=== PATIENT | female | born 1960 | race Two or more races ===

== ENCOUNTER 2016-09-18 00:22 | Inpatient (IN) | payer SELFPAY ==
--- NOTE | 2016-09-18 00:57 | EDPHY ---
H & P Smoking Status: Never smoked Time Seen by Provider: 09/18/16 00:54 HPI/ROS: CHIEF COMPLAINT: Depressed suicidal ideation HISTORY OF PRESENT ILLNESS: This is a 56-year-old female presenting to the emergency department seeking help for her depression. Patient states October will be the anniversary of her 's 2 years ago she was to him over 33 years, she also states would increased her depression her cat 2 weeks ago. States she has had a lot of overwhelming stress environmental stressors having to deal with the household finances, putting her house up for sale. Patient states she did call some friends to see if she could talk with them" nobody called me back, then I called the crisis line in the told me to come here" patient states she has been seeing a therapist which she sought 1 month ago they increased her Effexor, patient states she did not increase her Effexor at that time but when her cat 2 weeks ago that is when she increased her Effexor" and just not working". " I just started walking around tonight walking around [place] and then I started having thoughts of killing myself because I have so much stress right now". Patient denies any plan. REVIEW OF SYSTEMS: Constitutional: No fever, no chills. Eyes: No discharge. ENT: No sore throat. Cardiovascular: No chest pain, no palpitations. Respiratory: No cough, no shortness of breath. Gastrointestinal: No abdominal pain, no vomiting. Genitourinary: No hematuria. Musculoskeletal: No back pain. Skin: No rashes. Neurological: No headache. Crying (Sharmaine Chambers) Physical Exam: General Appearance: Alert, anxious and crying Eyes: Pupils equal and round no pallor or injection. ENT, Mouth: Mucous membranes moist. Respiratory: There are no retractions, lungs are clear to auscultation. Cardiovascular: Regular rate and rhythm. Gastrointestinal: Abdomen is soft and nontender, no masses, bowel sounds normal. Neurological: No focal deficits. Answering questions appropriately Skin: Warm and dry, no rashes. Musculoskeletal: Neck is supple nontender. Extremities: symmetrical, full range of motion. Psychiatric: Patient is oriented X 3, anxious and crying (Sharmaine Chambers) Constitutional: Initial Vital Signs Temperature (C) 36.9 C 09/18/16 00:23 Heart Rate 69 09/18/16 00:23 Respiratory Rate 20 09/18/16 00:23 Blood Pressure 125/81 H 09/18/16 00:23 O2 Sat (%) 97 09/18/16 00:23 O2 Delivery Mode Room Air Allergies/Adverse Reactions: No Known Allergies Allergy (Verified 09/18/16 09:21) Home Medications: Medication Instructions Recorded Ascorbate Calcium [Ludy-C] 500 mg PO DAILY 09/18/16 Multivitamins [Multivitamin (*)] 1 each PO DAILY 09/18/16 S-Adenosylmethionine Sul Tosyl 400 mg PO DAILY 09/18/16 [Chandana-E] Thyroid 65 mg PO DAILY 09/18/16 Venlafaxine Xr [Effexor Xr 37.5MG 37.5 mg PO DAILY 09/18/16 (*)] Venlafaxine Xr [Effexor Xr 75MG 75 mg PO DAILY 09/18/16 (*)] Medical Decision Making ED Course/Re-evaluation: 0604AM: No acute events overnight. Patient pending placement has been evaluated. On M1 hold. Patient signed over to Dr. Gaston at 7am shift Change. (Rohan Márquez) I assumed care of this patient from Dr. Márquez at 7:00 a.m.. Patient has been stable. She has been evaluated by mental health and has been accepted for admission at [address] [place] [address]. (Gildardo Ventura) Discussed ED plan of care" CBC, BMP, UA, urine drug tox, psych evaluation 0130: Patient medically cleared for psych. Uzma with [facility] a patient bedside 0210: Discussed patient with crusting with [facility], patient at this time cannot contract for safety has stated that she may not have pills but she could walk out in front of a car. Patient placed on an M1 hold 0215: Report handed off to Dr. Márquez. Patient stable not in any distress ( Sharmaine Chambers) Differential Diagnosis: Other differential diagnosis considered but not limited to paranoia, anxiety, and suicide attempt (Sharmaine Chambers) - Data Points Laboratory Results: Laboratory Results 09/18/16 01:00 09/18/16 01:00 09/18/16 01:00 TSH 1.190 uIU/mL uIU/mL (0.465-4.680) Departure - Departure Disposition: [facility] IP Clinical Impression: Suicidal ideation Condition: Fair
[2016-09-18 01:12] LABS: % IMMATURE GRANULYOCYTES 0.2 % (0.0-1.1); ABSOLUTE IMMATURE GRANULOCYTES 0.02 10^3/uL (0.00-0.10); ADD DIFF? NO; ADD MORPH? NO; ADD SCAN? NO; ATYPICAL LYMPHOCYTE FLAG 20 (0-99); FRAGMENT RBC FLAG 0 (0-99); HEMATOCRIT 42.7 % (38.0-47.0); HEMOGLOBIN 14.5 g/dL (12.6-16.3); LEFT SHIFT FLG 0 (0-99); LIPEMIA HEMOLYSIS FLAG 90 (0-99); MEAN CELL HEMOGLOBIN 30.5 pg (27.9-34.1); MEAN CELL VOLUME 89.7 fL (81.5-99.8); MEAN PLATELET VOLUME 9.4 fL (8.7-11.7); PLATELET CLUMPS FLAG 0 (0-99); PLATELET COUNT 269 10^3/uL (150-400); RED BLOOD CELL COUNT 4.76 10^6/uL (4.18-5.33); RED CELL DISTRIBUTION WIDTH 11.9 % (11.5-15.2)
[2016-09-18 01:25] LABS: ANION GAP 12 mEq/L (8-16); CARBON DIOXIDE 19 mEq/l (22-31); CHLORIDE 111 mEq/L (97-110); CREATININE 0.7 mg/dL (0.6-1.0); ETHANOL SERUM < 10 mg/dL (0-10); GLOMERULAR FILTRATION RATE > 60; GLUCOSE 118 mg/dL (70-100); POTASSIUM 3.9 mEq/L (3.5-5.2); SODIUM 142 mEq/L (134-144)
[2016-09-18] MEDS ORDERED: ACETAMINOPHEN 325 MG TAB PO PRN (13:45)
[2016-09-18] MEDS ORDERED: LORazepam 0.5 MG TAB PO PRN (13:46)
[2016-09-18] MEDS ORDERED: MAG HYDROX/AL HYDROX/SIMETH 30 ML UDCUP PO PRN (13:47)
[2016-09-18] MEDS ORDERED: MAGNESIUM HYDROXIDE 30 ML UDCUP PO PRN (13:48)
[2016-09-18] MEDS: THYROID 60 MG TAB PO SCH (14:00)
--- NOTE | 2016-09-18 16:01 | BCON ---
[f rep st] BEHAVIORAL HEALTH CONSULTATION INTERNAL MEDICINE CONSULTATION DATE OF CONSULTATION: 09/18/2016 REFERRING PHYSICIAN: Vianney Marinelli MD REASON FOR REFERRAL: Medical clearance for inpatient behavioral health stay. HISTORY OF PRESENT ILLNESS: This patient came to the emergency department, being referred by the mental health crisis line. She has had increasing depression over a period of time with multiple stressors. She was evaluated by the mental health team and admitted for further psychiatric care for depression. She reports that she had an episode of chest pressure this morning in the emergency department adjacent to her left lower sternum. She did not have any associated shortness of breath, sweats, or nausea. It lasted for up to 2 hours and then resolved on its own. She also reports that she has had episodes of shaking and possibly neuropathic discomfort in her arms and legs. Sometimes this interferes with her ability to sleep and she reports that one time she took a clonazepam tablet which helped her relax, though she does not think that these neurologic symptoms are due to anxiety. She reports that her symptoms of fibromyalgia as well as hypothyroidism and possibly this neurologic issue that she raises are due to treatment with Lupron when she was 32 years old for uterine fibroids. Otherwise, she is without any acute complaints. PAST MEDICAL HISTORY: 1. Depression. 2. Hypothyroidism. 3. Uterine fibroids. PAST SURGICAL HISTORY: She has had surgical excision of fibroids. MEDICATIONS: Prior to admission, she was takin. Norris Thyroid 65 mg p.o. daily. 2. Venlafaxine 112.5 mg p.o. daily. 3. S-adenosylmethionine 400 mg p.o. daily. 4. Multivitamin 1 p.o. daily. 5. Calcium ascorbate 500 mg p.o. daily. SOCIAL HISTORY: Her approximately 2 years ago. Her cat 2 weeks ago. She lives in [place]. 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 She is a nonsmoker and she has only occasional alcohol. She is originally from [place]. FAMILY HISTORY: She reports a family history of early heart disease and by myocardial infarction in her grandfather while he was in his 50s. She also relates a family history of depression. REVIEW OF SYSTEMS: Other than as in HPI, she reports fibromyalgia pain, but she does not take medications for it. She denies dyspnea or cough. She denies fevers or chills. She denies weight change. She denies nausea, vomiting, constipation, or diarrhea. She denies joint pain or joint swelling. She denies dysuria or urinary frequency. She is postmenopausal for about 4 years and other than that, a 10-point review of systems was negative. PHYSICAL EXAM: VITAL SIGNS: Blood pressure is 95/54, heart rate is 88, respiratory rate is 16, oxygen saturation is 98% on room air. Her temperature is 36.8 degrees centigrade. Her weight is 63 kg for a body mass index of 22.4. GENERAL: This is a well-nourished, well-developed woman who appears her chronologic age. Cooperative and in no acute distress. HEENT: Extraocular movements are intact. Pupils are equal, round, reactive to light. Mucous membranes are moist. Dentition is in good condition. She has an uncrowded airway, Mallampati class 1. NECK: Supple with no thyromegaly. HEART: There is a regular rate and rhythm with no murmurs, rubs, or gallops. LUNGS: Clear to auscultation bilaterally. ABDOMEN: Soft, nontender, nondistended with normoactive bowel sounds. EXTREMITIES: There is no cyanosis, clubbing, or edema. NEUROLOGIC: She is alert and oriented x3. Cranial nerves 2-12 are grossly intact. There is no focal weakness and sensation is intact to light touch. LABORATORY STUDIES: Drawn in the emergency department: CBC was within normal limits. Serum chemistry revealed a slightly high chloride at 111, a slightly low carbon dioxide at 19; these are likely of no clinical significance. Glucose was slightly high at 118, but this was likely not fasting. TSH was ordered, but the result is pending. Toxicology screen in the serum was negative for ethyl alcohol, and the urine was negative for any substances of abuse. ASSESSMENT/RECOMMENDATIONS: 1. Mental health issues pending further evaluation and management by Psychiatry and the mental health team. 2. Hypothyroidism. Await TSH ordered in the emergency department, and continue her thyroid supplementation. 3. Chest pain. I will order an EKG to evaluate. 4. Fibromyalgia. 5. Nonspecific peripheral neuropathic symptoms. Unclear whether these as well as fibromyalgia symptoms may be caused by or exacerbated by depression and anxiety. Advised her to observe for improvement when her depression is more optimally treated. I see no medical contraindications to this patient's continued stay on the inpatient behavioral health unit or to any psychiatric medications or procedures. Thank you very much for including me in the care of this patient and please do not hesitate to contact me or the hospitalist service should there be need for further medical evaluation. /[id number]/MODL MTDD
[2016-09-18] MEDS: VENLAFAXINE XR 150 MG CAP PO SCH (17:48)
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
[2016-09-18] MEDS: MELATONIN 3 MG TAB PO PRN (23:54)
[2016-09-19] MEDS: VENLAFAXINE XR 150 MG CAP PO SCH (08:54)
[2016-09-19] MEDS: THYROID 60 MG TAB PO SCH (10:34)
[2016-09-19] MEDS ORDERED: hydrOXYzine HCL 25 MG TAB PO PRN (15:00)
[2016-09-19] MEDS: ASPIRIN EC 81 MG TAB PO SCH (20:32)
[2016-09-19] MEDS: MELATONIN 3 MG TAB PO PRN (22:02)
--- NOTE | 2016-09-19 22:39 | SOAPPROG ---
SOAP Progress Note Assessment/Plan: Assessment: 56yo w/hx MDD went to [facility] to feel safe in waiting area late night since not able to stay at a friends' house, and felt too acutely emotionally distressed, crying and calling crisis # for help when asked to come into ER for eval. Expressed mult stressors acute on chronic and recent loss of cat, and still grieving loss of H 2yr ago. no plan/intent for SI but did not feel safe to leave , and admitted on M1 09/19/16 18:18 slept 6.5hrs. states noise from A/C interfered w/sleep. staff provided earplugs denied any med s/e to incr Effexor, not feeling anxious today. will get EKG today (see hospitalist note) spent time discussing outpt MH f/u options, also living situation options. can return to her home if necessary, just feels alone there and remembers losses. discusses other options to relieve financial stressor with home mortgage. considering a roommate, also plans to [place] and hope for a sale soon. plans to start making phone calls from unit to customs house broker, friends etc. also interested in finding grief support group to connect with, since such groups have helped in past. considering [facility] for f/u since has been there before once, unless plans to stay locally then will go to [facility]. working with cc on unit about this. talked about focusing on or taking time daily for self-care, ensuring proper nutrition, resuming exercise, sleeping well MSE: dressed in hosp gowns, groomed/brushed long hair, nml PMA, good ec nml speech rate/vol, mood "I feel fine" and wondering about leaving soon to continue taking care of things. affect euthymic, not labile or tearful. denied any ah/vh, no evid of thought d/o, no hi, consistently denied any SI, active/passive or even fleeting thoughts. has been consistently future-oriented throughout hospital stay. i/j seem intact, cogntion intact. PLAN: cont meds noted in hospitalist admit note that pt has been taking SAMe 400mg. will discuss with pt tomorrow, and pharmacist, since has 5HT effects. add Vistaril 25mg tid prn anxiety to try if needed. cont melatonin 3mg hs prn anticipate d/c tomorrow or by end of - w/ f/u in place Objective: Vital Signs Temp Pulse Resp BP Pulse Ox 36.8 C 74 12 121/73 H 96 09/19/16 06:00 09/19/16 06:00 09/19/16 06:00 09/19/16 06:00 09/19/16 06:00 - Time Spent With Patient Time Spent With Patient: 35min - Pending Discharge Pending Discharge Within 24 Hours: No Pending Discharge Within 48 Hours: Yes Pending Discharge Date: 09/21/16 Pending Discharge Time: 11:00 ICD10 Worksheet Patient Problems: Problems Problem Status Onset Suicidal ideation Acute
[2016-09-20 06:21] VITALS: BP 129/79; PULSE 64; RESP 14; TEMP 97.7; O2SAT 97
[2016-09-20] MEDS: THYROID 60 MG TAB PO SCH (11:14)
[2016-09-20] MEDS: VENLAFAXINE XR 150 MG CAP PO SCH (11:14)
[2016-09-20] MEDS: ASPIRIN EC 81 MG TAB PO SCH (11:15)
--- NOTE | 2016-09-20 14:57 | SOAPPROG ---
SOAP Progress Note Assessment/Plan: Assessment: 56yo w/hx MDD went to [facility] to feel safe in waiting area late night since not able to stay at a friends' house, and felt too acutely emotionally distressed, crying and calling crisis # for help when asked to come into ER for eval. Expressed mult stressors acute on chronic and recent loss of cat, and still grieving loss of H 2yr ago. no plan/intent for SI but did not feel safe to leave , and admitted on M1 09/19/16 18:18 slept 6.5hrs. states noise from A/C interfered w/sleep. staff provided earplugs denied any med s/e to incr Effexor, not feeling anxious today. will get EKG today (see hospitalist note) spent time discussing outpt MH f/u options, also living situation options. can return to her home if necessary, just feels alone there and remembers losses. discusses other options to relieve financial stressor with home mortgage. considering a roommate, also plans to [place] and hope for a sale soon. plans to start making phone calls from unit to stock broker supervisor, friends etc. also interested in finding grief support group to connect with, since such groups have helped in past. considering [facility] for f/u since has been there before once, unless plans to stay locally then will go to [facility]. working with cc on unit about this. talked about focusing on or taking time daily for self-care, ensuring proper nutrition, resuming exercise, sleeping well MSE: dressed in hosp gowns, groomed/brushed long hair, nml PMA, good ec nml speech rate/vol, mood "I feel fine" and wondering about leaving soon to continue taking care of things. affect euthymic, not labile or tearful. denied any ah/vh, no evid of thought d/o, no hi, consistently denied any SI, active/passive or even fleeting thoughts. has been consistently future-oriented throughout hospital stay. i/j seem intact, cogntion intact. PLAN: cont meds noted in hospitalist admit note that pt has been taking SAMe 400mg. will discuss with pt tomorrow, and pharmacist, since has 5HT effects. add Vistaril 25mg tid prn anxiety to try if needed. cont melatonin 3mg hs prn anticipate d/c tomorrow or by end of w/ f/u in place 09/20/16 14:56 Objective: Vital Signs Temp Pulse Resp BP Pulse Ox 36.5 C 64 14 129/79 H 97 09/20/16 06:00 09/20/16 06:00 09/20/16 06:00 09/20/16 06:00 09/20/16 06:00 - Pending Discharge Pending Discharge Within 24 Hours: Yes Pending Discharge Within 48 Hours: No Pending Discharge Date: 09/21/16 Pending Discharge Time: 11:00 ICD10 Worksheet Patient Problems: Problems Problem Status Onset Suicidal ideation Acute
--- NOTE | 2016-09-20 16:52 | SOAPPROG ---
SOAP Progress Note Assessment/Plan: Assessment: Chest pain. Discussed EKG result with marble finisher. Diffuse ST depression may be nonspecific however cannot rule out cardiac ischemia. * Rubber Mixer advises follow-up for stress test after discharge. * Begin low-dose aspirin until coronary artery disease can be ruled out. 09/20/16 16:50 09/20/16 16:51 Subjective: Late entry for 09/19/2016. She reports another episode of chest pain this morning which was quite brief. She denies associated nausea diaphoresis or shortness of breath. Objective: Vital Signs Temp Pulse Resp BP Pulse Ox 36.5 C 64 14 129/79 H 97 09/20/16 06:00 09/20/16 06:00 09/20/16 06:00 09/20/16 06:00 09/20/16 06:00 Physical Exam - Physical Exam General Appearance: WD/WN, alert, no apparent distress Respiratory: No respiratory distress, No accessory muscle use Skin: normal color, warm/dry Neuro/Psych: no motor/sensory deficits, alert, normal mood/affect, oriented x 3 ICD10 Worksheet Patient Problems: Problems Problem Status Onset Suicidal ideation Acute
--- NOTE | 2016-09-21 07:00 | BDS ---
[f rep st] BEHAVIORAL HEALTH DISCHARGE SUMMARY REASON FOR ADMISSION: Patient is a 56-year-old Citizen Of [place], bilingual, x2 years female, with a 20+ year history of depression. She reports most beneficially treated with venlafaxine, who self-pr esented to the [facility] ER complaining of significant emotional distress, crying frequently, feeling very stressed and overwhelmed related to acute on chronic psychosocial stressors. She did not voice spe [facility] specialty hospital plan or intent to harm herself, she did not report having clear suicidal ideation, but on eval uation was not able to state she could feel safe if leaving the hospital. She was placed on an M1 h old and admitted to [address] [place] [address] for stabilization, and evaluation, and safety. This was her 1st psychia tric hospitalization. HOSPITAL COURSE: PSYCHIATRIC ADMISSION: Patient was restarted on home dose of Effexor XR. She had been taking 75 mg for several years and recently self-increased by 37.5 mg 2 weeks ago after her ca t was lost and presumed . She admitted to taking a mixture of 37.5 mg prescribed dose which she filled after seeing a psychiatrist in [place] in April 2016, but never increased to 112.5 mg at [facility] time. She had continued on her previous home dose of 75 mg daily, but over the past month had bee n taking a generic formulation her brother sent to her from [place], presumably because she no longer had refills and had been trying to save money. On admission, medication dosing, risks and benefits were reviewed, also that there were concerns around medication from another country not being regula [place], therefore, was not sure if what she thought she was taking was actually what she was taking. S he agreed to increase to Effexor ER 150 mg daily and tolerated that without any side effects. She additionally reported episodes of anxiety and feeling very overwhelmed, which had been happening often recently, but no clear panic attacks. Occasionally she described feeling a diffuse tingling sensation throughout her body like tiny balls under her skin, tingling, more like small bubbles thro ughout, stating this occurred if she was acutely upset by something, such as someone yelling at her or feeling very overwhelmed, stressed, or after a full day of exhausting herself and trying to do ma ny things, then notices this sensation when finally quiet, lying down, and trying to get to sleep. This sensation was not otherwise described with any other symptoms such as heart pounding, shortness of breath, hyperventilation, etc. She did not relate it to any medication changes, stating it had been occurring for the last 2 to 3 years. Occasionally she reported using medication from [facility] was Klonopin 0.25 mg which helped. Again, she uses this very sparingly and has not recently. Gen plascencia describes being not interested in taking regular medication, just the least necessary when po ssible. She did not have such an episode during her hospital stay. It was unclear what the sensati on was related to, and she does have a history of being diagnosed with fibromyalgia, also thinks it may have been some kind of damage related to Lupron she took in the past. It was noted, after patient met with hospitalist, that she also takes SAMe 400 mg daily and has been doing so over the past month, having taking it sparingly in the past, but regularly recently. She thought this would help with her mood and stress. Written information was provided and reviewed [facility] patient about this medication, and warnings to not use with other serotonergic medications due to risks including serotonin syndrome. Patient was educated on this, reviewed symptoms of serotonin sy ndrome and risk. She agreed to no longer take this medication, especially while on Effexor and with recent dose increase. During hospital stay, patient felt supported by staff, talking with primary team, as well as care co ordinator. She made phone calls as well. She listed several stressors, as noted in admission asses sment, notably financial, attempting to see her house, relocating to [place] and staying with a frie nd. She does not want to return to her home, which she is in the process of selling, because it car camryn too many negative memories, including the of her of 23 years from cancer 2 years ago, and the loss of her cat 2 weeks ago. She talked about her [facility] having [facility] a [facility], leaving 5 days ago, which was also stressful due to their inherent conflic ts with each other. She was able to do this in an organized manner, things she needed to take care of in community. She acknowledged that a lack of regular routine, including exercise, and regular m eals, and sleep patterns were not followed recently and contributed to lack of self-care and feeling overwhelmed. SAFETY: Patient consistently denied any suicidal ideation throughout her hospital course. She isabel ed any active or passive thoughts, not even any fleeting thoughts. She reported only twice feeling severely depressed in the past, but no history of suicide attempts and consistently reported future- oriented thinking. She feels that finding a support group for grief support would be helpful, as a cancer support group was helpful in the past when her was ill. She feels she never adequate ly grieved and had just needed to take over everything that he had been doing previously, and that s he relied on him to do, and has subsequently needed to teach herself to take care of, including marco ncial matters, house issues, taxes, etc. When reflecting on this, she actually is able to state lashaun t she is quite proud of herself for having accomplished this much, but does still miss him. She was able to contract for safety, and only remained on suicide precautions very briefly until they were discontinued. MEDICAL: Patient had a history of uterine fibroids, for which she took Lupron for several months, w erika gave her significant depression and put her in forced menopause. All the adverse symptoms reso lved once off Lupron, this was approximately 10+ years ago. She is postmenopausal x3 to 4 years. S he has a history of fibromyalgia and hypothyroidism, both she states diagnosed after being on Lupron , and she attributes to that medication. She continued on her thyroid medication throughout her [facility] stay, and TSH was within normal limits. Hospitalist ordered EKG, due to her mentioning an epi sode of chest pain and also the tingling sensation described above. She was noted to have abnormal EKG, was started on 81 mg aspirin, and was recommended to have a cardiac stress test as an outpatien t. She admits not having a primary care provider at this time, also no insurance, and currently wit h financial stressors. She was signed up for Medicaid, but this may take a couple of months to star t. In the meantime she will seek a primary care at the [facility] or discuss available options with [facility]. She reported exercising on the exercise bike on the unit and did not have any associated cardiac symptoms, but agrees to followup and continue on aspirin in the meantime . There were no other episodes of a tingling sensation/paresthesias as noted above. It was also sp eculated that perhaps this was related to medication or symptom of possible panic/anxiety disorder. Medication changes were instructed as above, with eliminating any unknown herbs or unregulated medi cations, and also Effexor would be beneficial for generalized anxiety disorder and panic disorder. MENTAL STATUS EXAMINATION AT DISCHARGE: Patient was casually dressed, neatly groomed, with long bru shed hair, normal psychomotor activity, good eye contact, normal rate and volume of speech, slightly increased at times when she talked about things she needed to do, but this seems to be her baseline , and she was not pressured. Mood was fine. Affect was appropriate and full range. She denied fee ling depressed. She denied any psychotic symptoms throughout her stay and has no history of such. She denied any suicidal ideation or thoughts to harm others. Thought processes were linear and goal directed, future oriented, and organized. There was no evidence of harmeet or hypomania. Insight an d judgment were both felt to be good. Cognition was intact, and she was alert and oriented x4. DISCHARGE AT DISCHARGE: 1. Major depressive disorder, moderate. 2. Anxiety disorder, unspecified. 3. Hypothyroidism. 4. Fibromyalgia. 5. Abnormal EKG. 6. Financial stressors. 7. . 8. Unemployed. PLAN: Patient was willing, if team really wanted her, to stay another day, but she was ready for [place] and requested to do so. There was on contraindication to this, and was terminated at time o f discharge. Patient was felt to have achieved maximum therapeutic benefit from hospital. She did find the provided reading material very helpful and also the medication changes, as well as assistan ce to connect with outpatient mental health support after discharge. Appointments were made for [facility], since she relocated to [place]. Appointment made for 09/22 at 10:30 a.m. She was provided with 1-month prescription of venlafaxine XR 150 mg p.o. daily and given a coupon for di scounted medication, printed from [employer], as recommended by pharmacist. DISCHARGE MEDICATIONS: Include: 1. Henderson Thyroid 60 mg daily. 2. Aspirin 81 mg daily. 3. Venlafaxine XR 150 mg daily. 4. Melatonin 3 mg q.h.s. 5. She was instructed that it was okay to also resume her multivitamin, vitamin C, and B complex vi tamin, but to discontinue SAMe. She also will plan to followup on getting involved with grief support groups, also [facility] about any other support group for anxiety and depression. She has several frie nds who she can lean on for support. She agrees to return to the emergency room, or call crisis janes e, or go to the walk-in mental health urgent clinic if any worsening of symptoms or not feeling safe . /[id number]/MODL
== END 2016-09-20 16:25 | disposition home or self-care (01) | DRG 885 ==
LOC: BBEH 10:40
PROVIDERS: ADMIT Psychiatry & Neurology Behavioral Neurology & Neuropsychiatry; ATTEND Psychiatry & Neurology Behavioral Neurology & Neuropsychiatry
DX: F33.2 Major depressive disorder, recurrent severe without psychotic features (principal); E03.9 Hypothyroidism, unspecified; R94.31 Abnormal electrocardiogram [ECG] [EKG]; M79.7 Fibromyalgia; Z56.0 Unemployment, unspecified; Z63.4 Disappearance and death of family member
CPT/HCPCS: 80305; G0480